=== PATIENT | female | born 1990 | race Caucasian/White ===

== ENCOUNTER 2017-07-02 06:11 | Emergency (ER) | payer OTHER ==
[2017-07-02] MEDS ORDERED: Metoclopramide IV* 5 MG/ML 2 ML VIAL IV SLOW PU ONE (06:38)
--- NOTE | 2017-07-02 07:02 | ED ---
Miguel Armendariz Rebecca, scribed for Jose A Cano MD on 07/02/17 at 0634 . - HPI Summary HPI Summary: Pt is a 26 y/o F who is 13 weeks who presents to ED c/o vaginal bleeding. Pt reports waking up at 0230 this morning feeling diaphoretic, nauseous and lightheaded after which she drank water and went back to sleep. At 0530 the pt woke up with dark red vaginal bleeding with spotting in her pants and "soaking" toilet paper when wiping. Additionally c/o CP and diarrhea since 0530. Denies abdominal cramping. Reports that she has previously experienced nausea with pregnancies, though symptoms had improved. Unknown blood type and she just moved here from [place] so she does not have an OB. A0. Last US was 2 weeks ago (at 11 weeks gestation). - History of Current Complaint Chief Complaint: EDOBProblems Stated Complaint: 13 WEEKS PREG, VAGINAL BLEEDING Hx Obtained From: Patient Onset/Duration: Started Hours Ago, Still Present Current Severity: None Pain Intensity: 0 Aggravating Factors: Nothing Alleviating Factors: Nothing Associated Signs and Symptoms: Positive: Nausea, Vaginal Bleeding or Discharge - Bleeding, Other: - Lightheadedness - Allergies/Home Medications Allergies/Adverse Reactions: Allergies Allergy/AdvReac Type Severity Reaction Status Date / Time No Known Allergies Allergy Verified 07/02/17 06:17 PMH/Surg Hx/FS Hx/Imm Hx Sensory History: Denies: Hx Deafness Neurological History: Reports: Other Neuro Impairments/Disorders - Syncope Infectious Disease History: No Infectious Disease History: Denies: Traveled Outside the [place] in Last 30 Days - Family History Known Family History: Negative: Diabetes - Social History Alcohol Use: None Hx Substance Use: No Substance Use Type: Reports: None Smoking Status (MU): Never Smoked Tobacco Review of Systems Positive: Skin Diaphoresis Positive: Chest Pain Positive: Diarrhea, Nausea. Negative: Abdominal Pain Positive: other - Vaginal bleeding Neurological: Other - Lightheadedness All Other Systems Reviewed And Are Negative: Yes Physical Exam - Summary Physical Exam Summary: VITAL SIGNS: Reviewed. GENERAL: ~Patient is a well-developed and nourished female who is lying comfortable in the stretcher. Patient is not in any acute respiratory distress. HEAD AND FACE: No signs of trauma. No ecchymosis, hematomas or skull depressions. No sinus tenderness. EYES: PERRLA, EOMI x 2, No injected conjunctiva, no nystagmus. EARS: Hearing grossly intact. Ear canals and tympanic membranes are within normal limits. MOUTH: Oropharynx within normal limits. NECK: Supple, trachea is midline, no adenopathy, no JVD, no carotid bruit, no c- spine tenderness, neck with full ROM. CHEST: Symmetric, no tenderness at palpation LUNGS: Clear to auscultation bilaterally. No wheezing or crackles. CVS: Regular rate and rhythm, S1 and S2 present, no murmurs or gallops appreciated. ABDOMEN: Soft with mild suprapubic tenderness. No signs of distention. No rebound no guarding, and no masses palpated. Bowel sounds are normal. EXTREMITIES: FROM in all major joints, no edema, no cyanosis or clubbing. NEURO: Alert and oriented x 3. No acute neurological deficits. Speech is normal and follows commands. SKIN: Dry and warm - Physical Exam Triage Information Reviewed: Yes Vital Signs On Initial Exam: Initial Vitals Temp Pulse Resp BP Pulse Ox 97 F 118 16 125/77 99 07/02/17 06:15 07/02/17 06:15 07/02/17 06:15 07/02/17 06:15 07/02/17 06:15 Vital Signs Reviewed: Yes Diagnostics - Vital Signs Vital Signs Temp Pulse Resp BP Pulse Ox 07/02/17 06:15 97 F 118 16 125/77 99 - Laboratory Lab Statement: Any lab studies that have been ordered have been reviewed, and results considered in the medical decision making process. Course/Dx - Course Assessment/Plan: Pt is a 26 y/o F who is 13 weeks who presents to ED c/ o vaginal bleeding. Pt reports waking up at 0230 this morning feeling diaphoretic, nauseous and lightheaded after which she drank water and went back to sleep. At 0530 the pt woke up with dark red vaginal bleeding with spotting in her pants and "soaking" toilet paper when wiping. Additionally c/o CP and diarrhea since 0530. Denies abdominal cramping. Reports that she has previously experienced nausea with pregnancies, though symptoms had improved. Unknown blood type and she just moved here from [place] so she does not have an OB. A0. Pt will be signed out to Dr. Rivera, pending dispo, awaiting US. - Diagnoses Provider Diagnoses: Vaginal bleeding Discharge - Discharge Plan Condition: Stable Disposition: OTHER Discharge Disposition Comment: Pt will be signed out to Dr. Rivera, pending dispo , awaiting US. Referrals: Non Staff,Doctor [Primary Care Provider] - The documentation as recorded by the Miguel billy Rebecca accurately reflects the service I personally performed and the decisions made by me, Jose A Cano MD.
[2017-07-02 07:22] LABS: ABS Basophils 0.1 10^3/ul (0-0.2); ABS Eosinophils 0 10^3/ul (0-0.6); ABS Lymphocytes 1.2 10^3/ul (1.0-4.8); ABS Monocytes 0.6 10^3/ul (0-0.8); ABS Neutrophils 8.6 10^3/ul (1.5-7.7); ABS Nucleated RBC 0 10^3/ul; Eosinophil % 0.3 % (0-6); Hematocrit 38 % (35-47); Hemoglobin 12.8 g/dl (12.0-16.0); Lymphocyte % 11.5 % (25-47); Mean Corpuscular HGB Conc 34 g/dl (31-36); Mean Corpuscular Hemoglobin 27 pg (27-31); Mean Corpuscular Volume 79 fL (80-97); Mean Platelet Volume 8 um3 (7.4-10.4); Nucleated Red Blood Cells % 0; Platelet Count 302 10^3/ul (150-450); Red Blood Count 4.79 10^6/ul (4.0-5.4); Red Cell Distribution Width 14 % (10.5-15); White Blood Count 10.5 10^3/ul (3.5-10.8)
[2017-07-02 07:35] LABS: EGFR Non-African American 143.6 (>60)
[2017-07-02 07:39] LABS: Urine Appearance Clear; Urine Blood 3+ (Negative); Urine Color Yellow; Urine Ketones Negative (Negative); Urine Protein Negative (Negative); Urine Specific Gravity 1.017 (1.010-1.030); Urine Urobilinogen Negative (Negative)
--- NOTE | 2017-07-02 09:15 | RAD ---
Indication: Vaginal bleeding. Real-time sonography of the was performed. There is a single intrauterine gestation with a crown-rump length of 6.7 cm corresponding to gestational age of 13 weeks 0 days. heart activity measures 156 bpm. Placenta is unremarkable. Amniotic fluid is within normal limits. Right ovary measures 3.2 x 2.6 x 3.3 cm. A cyst is noted right ovary measuring 2.6 x 2.1 x 2.4 cm. Left ovary measures 1.6 x 1.2 x 2.2 cm. IMPRESSION: Single intrauterine gestation with gestational age of 13 weeks 0 days. Cyst or follicle in the right ovary measuring up to 2.6 cm. Estimated date of delivery January 07, 2018. heart activity is noted at 156 bpm.
[2017-07-02 11:04] VITALS: BP 114/70
--- NOTE | 2017-07-04 17:52 | ED ---
Dat Armendariz Angela, scribed for Neto Rivera MD on 07/02/17 at 0728 . Progress - Progress Note Progress Note: This pt was signed out by Dr. Cano, pending disposition, awaiting US transvaginal. Pt is a 26 y/o female, currently 13 weeks , presenting to the ED c/ o vaginal bleeding. Transvaginal US, as read by radiologist IMPRESSION: Single intrauterine gestation with gestational age of 13 weeks 0 days. Cyst or follicle in the right ovary measuring up to 2.6 cm. Estimated date of delivery January 07, 2018. heart activity noted at [address] Rivera has reviewed this radiology report. I discussed pt care with Blaze Valentin, who reports the pt can be discharged home with follow up at [facility]. Pt is agreeable to discharge and follow up plan with OBGyn. Therefore the pt will be discharged with follow up from OBGyn. She is instructed to return to the ED for any worsening or new symptoms. Pt is hemodynamically stable, alert and oriented x3. Pt will be discharged to home, in stable condition, with a diagnosis of vaginal bleeding and . Condition: Stable Disposition: Home Re-Evaluation - Re-Evaluation First Eval Re-Evaluation Time: 07:32 Comment: She denies abd pain but notes some discomfort. Pt is awaiting transvaginal US. Second Eval Re-Evaluation Time: 10:08 Comment: I reviewed the US results with the pt. She is agreeable to discharge and follow up plan with OBGyn. Course/Dx - Diagnoses Provider Diagnoses: Vaginal bleeding, with 13 completed weeks gestation - Provider Notifications Discussed Care Of Patient With: Joy Saeed Time Discussed With Above Provider: 10:00 Instructed by Provider To: Other - I discussed pt care with Blaze Valentin, who reports the pt can be discharged home with follow up at [facility]. The documentation as recorded by the Dat billy Angela accurately reflects the service I personally performed and the decisions made by me, Neto Rivera MD.
== END 2017-07-02 11:02 ==
LOC: ED 06:11
DX: O46.91 Antepartum hemorrhage, unspecified, first trimester (principal); Z3A.13 13 weeks gestation of pregnancy; O34.81 Maternal care for other abnormalities of pelvic organs, first trimester
CPT/HCPCS: 36415; 76801; 80053; 81003; 81015; 84702; 85025; 86850; 86900; 86901; 96360; 96374; 96375; 99282; J2765

== ENCOUNTER 2017-12-31 06:06 | Inpatient (IN) | payer OTHER ==
[2017-12-30 14:09] LABS: ABS Basophils 0 10^3/ul (0-0.2); ABS Eosinophils 0 10^3/ul (0-0.6); ABS Lymphocytes 1.5 10^3/ul (1.0-4.8); ABS Monocytes 0.7 10^3/ul (0-0.8); ABS Neutrophils 8.8 10^3/ul (1.5-7.7); ABS Nucleated RBC 0 10^3/ul; Eosinophil % 0.2 % (0-6); Hematocrit 35 % (35-47); Hemoglobin 11.6 g/dl (12.0-16.0); Lymphocyte % 13.9 % (25-47); Mean Corpuscular HGB Conc 33 g/dl (31-36); Mean Corpuscular Hemoglobin 27 pg (27-31); Mean Corpuscular Volume 81 fL (80-97); Mean Platelet Volume 8.8 um3 (7.4-10.4); Nucleated Red Blood Cells % 0; Platelet Count 236 10^3/ul (150-450); Red Blood Count 4.32 10^6/ul (4.00-5.40); Red Cell Distribution Width 17 % (10.5-15); White Blood Count 11.1 10^3/ul (3.5-10.8)
[2017-12-31] MEDS ORDERED: ceFOXitin 2 GM IVPREMIX* 2 GM/50 ML BAG ONE (06:12)
[2017-12-31] MEDS ORDERED: Lidocaine 2% PF * 5 ML VIAL ONE (07:48)
[2017-12-31] MEDS ORDERED: Phenylephrine IV* 40 MCG/ML 10 ML SYRINGE ONE (07:48)
[2017-12-31] MEDS ORDERED: Ketorolac INJ* 30 MG/ML 1 ML VIAL ONE (07:48)
[2017-12-31] MEDS ORDERED: Ondansetron INJ* 2 MG/ML VIAL ONE (07:48)
[2017-12-31] MEDS ORDERED: OXYTOCIN* 10 UNITS/ML 1 ML VIAL ONE (07:48)
[2017-12-31] MEDS ORDERED: Bupivacaine-MPF SPINAL* 7.5 MG/ML - 2ML AMP ONE (07:48)
[2017-12-31] MEDS ORDERED: Naloxone* 0.4 MG/ML 1 ML VIAL IV PRN (07:52)
[2017-12-31] MEDS ORDERED: Acetaminophen IV 1GM/100ML * 1,000 MG/100 ML VIAL IVPB ONE (07:52)
[2017-12-31] MEDS ORDERED: oxyCODONE TAB* 5 MG TAB PO PRN (07:52)
[2017-12-31] MEDS ORDERED: HYDROmorphone INJ1* 1 MG/ML SYRINGE IV PRN (07:52)
[2017-12-31] MEDS ORDERED: DiMENhydriNATE IV* 50 MG/ML VIAL IV PUSH PRN (07:52)
[2017-12-31] MEDS ORDERED: EPHEDrine (Pressors)* 50 MG/ML VIAL ONE (08:26)
[2017-12-31] MEDS ORDERED: Midazolam* 1 MG/ML 2 ML VIAL (2 MG) ONE (08:44)
[2017-12-31] MEDS ORDERED: DiMENhydriNATE IV* 50 MG/ML VIAL ONE (09:05)
[2017-12-31] MEDS ORDERED: Glycerin ADULT SUPP PR PRN (09:16)
[2017-12-31] MEDS ORDERED: oxyCODONE/Acetamin 5/325 MG* TAB PO PRN (09:16)
[2017-12-31] MEDS ORDERED: Tetan/Diph/Pertus SYR(Tdap)* 0.5 ML SYR(BOOSTRIX) use SYR IM ONE (09:16)
[2017-12-31] MEDS ORDERED: Dibucaine 1% 28.35 GM TUBE PR PRN (09:16)
[2017-12-31] MEDS ORDERED: Acetaminophen TAB* 325 MG PO PRN (09:16)
[2017-12-31] MEDS ORDERED: Witch Hazel PAD* JAR TOPICAL PRN (09:16)
[2017-12-31] MEDS ORDERED: Oxytocin in LR* 20 UNITS/1,000 ML BAG IVPB SCH (10:00)
[2017-12-31] MEDS ORDERED: oxyCODONE TAB* 5 MG TAB PO ONE (12:13)
[2017-12-31] MEDS: Ibuprofen TAB* 600 MG PO PRN ×2 (15:24→22:05)
[2017-12-31] MEDS: Simethicone TAB* 80 MG TAB.CHEW PO SCH ×3 (15:25→20:16)
[2017-12-31] MEDS: Docusate CAP* 100 MG PO SCH ×2 (15:25→20:16)
[2017-12-31] MEDS: oxyCODONE/Acetamin 5/325 MG* TAB PO PRN ×3 (16:05→23:57)
[2017-12-31] MEDS ORDERED: Zolpidem TAB* 5 MG PO PRN (21:00)
--- NOTE | 2018-01-01 03:32 | OP ---
DATE OF OPERATION: 12/31/17 - ROOM #113 DATE OF : 86. SURGEON: Dr. Gao HEAD OF [employer]ADEM[employer]CHNOLOGY: Dr. Segovia ANESTHESIA: Spinal. PRE-OP DIAGNOSIS: Previous section. POST-OP DIAGNOSIS: Previous section plus pelvic adhesions. OPERATIVE PROCEDURE: Low transverse section. COMPLICATIONS: None. ESTIMATED BLOOD LOSS: 600 cc. FINDINGS: This is a 27-year-old 3, para 2, with two prior sections for an elective repeat. She declined tubal ligation at the time of . She had a viable male, Apgars 8 and 9, weight was 8 pounds 5 ounces. There were filmy adhesions to the lower uterine segment and some thicker adhesions to the lower uterine segment from the omentum. The bladder was scarred till lower uterine segment as well. DESCRIPTION OF THE PROCEDURE: The patient identified, as a low transverse section. The patient was taken to the operating room, prepped and draped in the usual fashion in the left lateral recumbent position under spinal anesthesia. A Pfannenstiel incision was made through the old incision and the keloid was excised. Incision was carried down to the fat, fascia, and peritoneum. A transverse incision was made in the lower uterine segment extended laterally using blunt dissection. The above was delivered through the incision with ease. The cord was doubly clamped and cut and the infant was handed to the awaiting bank reconciliator. Cord blood was obtained. The placenta delivered spontaneously. The uterus was wiped out with a wet lap sponge. The uterine incision was then closed using 0 Polysorb in a running fashion. A second layer was used to imbricate the first layer. The adhesions along the right uterine wall were lysed using the Bovie and carried down until the peritoneum was more free from the lower uterine segment. The bladder was caudal to the uterine incision though quite adherent. Both tubes and ovaries were inspected and found to be normal in appearance. The uterus was placed back into the abdominal cavity. The gutters were wiped out with wet lap sponge. The uterine incision was inspected and found to be hemostatic. Clear urine was noted. The peritoneum was then closed using 3-0 Polysorb in a running fashion. Hemostasis was achieved in the subrectus layers. The fascia was closed with 0 Polysorb in a running fashion, good hemostasis was achieved in the subcu. The space was closed using 3-0 Polysorb to try to prevent keloid formation, and the skin was closed with 4-0 Monocryl in a subcuticular fashion. All sponge and instrument counts were correct. [id number]/[facility] #: [id number] [facility] HOSPITALKelli
[2018-01-01] MEDS: Ibuprofen TAB* 600 MG PO PRN ×3 (03:41→16:16)
[2018-01-01] MEDS: oxyCODONE/Acetamin 5/325 MG* TAB PO PRN ×4 (03:49→22:53)
[2018-01-01 06:36] LABS: ABS Basophils 0 10^3/ul (0-0.2); ABS Eosinophils 0.1 10^3/ul (0-0.6); ABS Lymphocytes 1.7 10^3/ul (1.0-4.8); ABS Monocytes 0.9 10^3/ul (0-0.8); ABS Neutrophils 7.9 10^3/ul (1.5-7.7); ABS Nucleated RBC 0 10^3/ul; Eosinophil % 0.7 % (0-6); Hematocrit 31 % (35-47); Hemoglobin 10.5 g/dl (12.0-16.0); Lymphocyte % 15.9 % (25-47); Mean Corpuscular HGB Conc 34 g/dl (31-36); Mean Corpuscular Hemoglobin 28 pg (27-31); Mean Corpuscular Volume 81 fL (80-97); Mean Platelet Volume 8.4 um3 (7.4-10.4); Nucleated Red Blood Cells % 0; Platelet Count 186 10^3/ul (150-450); Red Blood Count 3.82 10^6/ul (4.00-5.40); Red Cell Distribution Width 17 % (10.5-15); White Blood Count 10.6 10^3/ul (3.5-10.8)
[2018-01-01] MEDS ORDERED: Ferrous Gluconate TAB* 324 MG TAB PO SCH (09:00)
[2018-01-01] MEDS: Simethicone TAB* 80 MG TAB.CHEW PO SCH ×3 (09:46→19:44)
[2018-01-01] MEDS: Docusate CAP* 100 MG PO SCH ×3 (09:47→19:40)
[2018-01-02] MEDS: Ibuprofen TAB* 600 MG PO PRN ×3 (00:36→20:26)
[2018-01-02] MEDS: oxyCODONE/Acetamin 5/325 MG* TAB PO PRN ×5 (03:24→23:49)
[2018-01-02] MEDS: Simethicone TAB* 80 MG TAB.CHEW PO SCH ×3 (10:40→20:26)
[2018-01-02] MEDS: Docusate CAP* 100 MG PO SCH ×3 (10:40→20:26)
[2018-01-02 20:17] VITALS: BP 107/65
[2018-01-03] MEDS: Ibuprofen TAB* 600 MG PO PRN ×2 (03:11→10:43)
[2018-01-03] MEDS: Docusate CAP* 100 MG PO SCH (08:02)
[2018-01-03] MEDS: Simethicone TAB* 80 MG TAB.CHEW PO SCH (08:02)
== END 2018-01-03 10:54 | disposition home or self-care (01) | DRG 766 ==
LOC: MCHOB 06:06
PROVIDERS: ADMIT Obstetrics & Gynecology; ATTEND Obstetrics & Gynecology
PROC: 0DNU0ZZ Release Omentum, Open Approach (ICD-10-PCS; 2017-12-31)
PROC: 10D00Z1 Extraction of Products of Conception, Low, Open Approach (ICD-10-PCS; principal; 2017-12-31 07:45)
DX: O34.211 Maternal care for low transverse scar from previous cesarean delivery (principal); O99.824 Streptococcus B carrier state complicating childbirth; O99.89 Other specified diseases and conditions complicating pregnancy, childbirth and the puerperium; N73.6 Female pelvic peritoneal adhesions (postinfective); Z3A.39 39 weeks gestation of pregnancy; Z37.0 Single live birth
CPT/HCPCS: 36415; 85025; 86850; 86900; 86901; 90686; 90715; A9270-GY; J0694; J1240; J1885; J2250; J2405; J2590